=== PATIENT | male | born 1975 | race Two or more races ===

== ENCOUNTER 2020-12-18 19:09 | Inpatient (IN) | payer MEDICAID, OTHER ==
[~2020-12-18] VITALS: Ht 162.6 cm; Wt 110.2 kg
[2020-12-18] MEDS ORDERED: ONDANSETRON HCL 4 MG/2 ML VIAL IV ONE (19:15)
[2020-12-18] MEDS ORDERED: cefTRIAXone 1GM/50ML D5W 50 ML IV ONE (19:15)
[2020-12-18] MEDS ORDERED: SODIUM CHLORIDE 0.9% 1,000 ML IV ONE (19:15)
[2020-12-18] MEDS ORDERED: OCTREOTIDE ACETATE 100 MCG in SODIUM CHL 0.9% 50 ML IV ONE (19:15)
[2020-12-18] MEDS ORDERED: PANTOPRAZOLE 40 MG/10 ML VIAL INJ IV ONE (19:15)
[2020-12-18] MEDS ORDERED: ETOMIDATE (2MG/ML) 20ML VIAL IV ONE (19:25)
[2020-12-18] MEDS ORDERED: ROCURONIUM 10MG/ML 10ML VIAL IV ONE (19:26)
[2020-12-18 19:28] LABS: Basophils # (auto) 0 10 ^3/uL (0-0.2); Eosinophils # (auto) 0.1 10 ^3/uL (0-0.8); Lymphocytes # (auto) 1.2 10 ^3/uL (0.4-5.4); Monocytes # (auto) 0.6 10 ^3/uL (0-1.3); Neutrophils # (auto) 2.9 10 ^3/uL (1.6-8.6); Nucleated Red Blood Cells % 0.1 %; Red Cell Distribution Width 19.3 % (11.8-14.3)
[2020-12-18 19:30] LABS: Basophils % (auto) 0.8 % (0.0-2.0); Eosinophils % (auto) 1.4 % (0.0-7.0); Hematocrit 21.5 % (41.0-53.0); Hemoglobin 7.6 g/dL (13.5-17.5); Lymphocytes % (auto) 25.1 % (10.0-50.0); Mean Corpuscular Hemoglobin 32.5 pg (28.0-32.0); Mean Corpuscular Hgb Conc. 35.1 g/dL (32.0-36.0); Mean Corpuscular Volume 92.7 fL (80.0-100.0); Monocytes % (auto) 12.3 % (0.0-12.0); Neutrophils % (auto) 60.4 % (37.0-80.0); Red Blood Cells 2.32 10^6/uL (4.5-5.90); White Blood Cell 4.8 10^3/uL (4.4-10.8)
[2020-12-18] MEDS ORDERED: fentaNYL Drip 2500mCg/250mlNS 250 ML IV ONE (19:35)
[2020-12-18 19:43] LABS: Albumin 1.4 g/dL (3.4-5.0); BUN/Creatinine Ratio 23.8; Calcium 7.3 mg/dL (8.5-10.1); Magnesium 2.2 mg/dL (1.6-2.6); Potassium 5.1 mmol/L (3.5-5.1)
[2020-12-18] MEDS: fentaNYL Drip 2500mCg/250mlNS 250 ML IV SCH (19:45)
[2020-12-18 19:48] LABS: Bilirubin, Total 9.6 mg/dL (0.2-1.0); Total Protein 5.7 g/dL (6.4-8.2)
[2020-12-18 20:15] LABS: INR 2.78 (0.9-1.15); Partial Thromboplastin Time 59.5 sec (23.6-33.0)
[2020-12-18 20:25] VITALS: BP 145/77
[2020-12-18 20:40] VITALS: BP 117/51
[2020-12-18 20:50] VITALS: BP 105/43
[2020-12-18] MEDS: OCTREOTIDE ACETATE 500 MCG in SODIUM CHL 0.9% 99 ML IV SCH (21:01)
[2020-12-18 21:05] VITALS: BP 101/48
[2020-12-18] MEDS: MIDAZOLAM DRIP 50 mg/50mL 50 ML IV SCH (21:19)
[2020-12-18 21:30] VITALS: BP 110/34
[2020-12-18 23:00] VITALS: BP 108/37
[2020-12-19] VITALS (85 sets, daily range): BP systolic 82–131; BP diastolic 24–47
[2020-12-19] MEDS ORDERED: MORPHINE SULFATE INJECTION 2 MG/ML SYRG IV PRN (00:30)
[2020-12-19] MEDS ORDERED: ONDANSETRON HCL 4 MG/2 ML VIAL IV PRN (00:30)
[2020-12-19] MEDS ORDERED: NITROGLYCERIN 0.4 MG SL TAB SL PRN (00:30)
[2020-12-19] MEDS ORDERED: ACETAMINOPHEN 650 MG RECT SUPP PR PRN (00:30)
[2020-12-19] MEDS: SODIUM CHLORIDE 0.9% 1,000 ML IV SCH ×2 (03:24→17:10)
[2020-12-19] MEDS: ALBUMIN 25% 50 ML IV SCH ×3 (03:25→18:54)
[2020-12-19] MEDS ORDERED: NOREPINEPHRINE 8 MG/250ML KIT 250 ML IV ONE (03:37)
[2020-12-19] MEDS: NOREPINEPHRINE 8 MG/250ML KIT 250 ML IV SCH (04:09)
[2020-12-19 06:59] LABS: Hematocrit 30.2 % (41.0-53.0); Hemoglobin 10.5 g/dL (13.5-17.5); Mean Corpuscular Hemoglobin 31.6 pg (28.0-32.0); Mean Corpuscular Hgb Conc. 34.6 g/dL (32.0-36.0); Mean Corpuscular Volume 91.2 fL (80.0-100.0); Red Blood Cells 3.31 10^6/uL (4.5-5.90); Red Cell Distribution Width 19.5 % (11.8-14.3); White Blood Cell 13.5 10^3/uL (4.4-10.8)
[2020-12-19 07:03] LABS: INR 2.25 (0.9-1.15)
[2020-12-19 07:10] LABS: Albumin 1.9 g/dL (3.4-5.0)
[2020-12-19 07:14] LABS: BUN/Creatinine Ratio 23.2; Total Protein 6.1 g/dL (6.4-8.2)
[2020-12-19 07:24] LABS: Basophils % (manual) 0 (0.0-2.0); Blast Cells 0; Metamyelocytes % 0; Promyelocytes % 0; Reactive Lymphocytes 0
[2020-12-19] MEDS: VASOPRESSIN 50 UNITS in D5W 5% 247.5 ML IV SCH ×4 (07:45→20:15)
[2020-12-19 08:46] LABS: Band Neutrophils % (manual) 3; Eosinophils % (manual) 1 (0-7); Lymphocytes % (manual) 20 (10.0-50.0); Monocytes % (manual) 14 (0-12); Myelocytes % 2
[2020-12-19 08:47] LABS: Potassium 6.4 mmol/L (3.5-5.1)
[2020-12-19] MEDS: cefTRIAXone 1GM/50ML D5W 50 ML IV SCH (09:00)
[2020-12-19] MEDS ORDERED: CALCIUM GLUC 1,000mg/50ml-NS 50 ML IV ONE (09:45)
[2020-12-19] MEDS: PANTOPRAZOLE 40 MG/10 ML VIAL INJ IV SCH ×2 (10:00→22:12)
[2020-12-19] MEDS ORDERED: FAMOTIDINE (10MG/ML) 2ML VL IV SCH (10:00)
[2020-12-19] MEDS: OCTREOTIDE ACETATE 500 MCG in SODIUM CHL 0.9% 99 ML IV SCH ×2 (10:15→15:15)
[2020-12-19] MEDS ORDERED: DEXTROSE (50%) 50ML SYRG IV ONE (10:45)
[2020-12-19] MEDS ORDERED: ALBUTEROL SULF 2.5 MG/0.5ML(0.5%) NEB SOLN NEB ONE (10:45)
[2020-12-19] MEDS ORDERED: SODIUM BICARBONATE 8.4% INJ 50ML SYRINGE IV ONE (10:45)
[2020-12-19] MEDS ORDERED: InsuLIN REG 1unit/0.01ml Soln (100units/ml) IV ONE (10:45)
[2020-12-19 11:06] LABS: Albumin 1.8 g/dL (3.4-5.0); Calcium 7.6 mg/dL (8.5-10.1)
[2020-12-19] MEDS ORDERED: ALBUTEROL SULF 2.5 MG/0.5ML(0.5%) NEB SOLN ONE (11:07)
[2020-12-19 11:09] LABS: BUN/Creatinine Ratio 24.3; Bilirubin, Total 12.5 mg/dL (0.2-1.0)
[2020-12-19 11:24] LABS: Potassium 6.5 mmol/L (3.5-5.1)
[2020-12-19] MEDS ORDERED: SPIR50TA2 PO (15:37)
[2020-12-19] MEDS ORDERED: PANT40TA2 PO (15:37)
[2020-12-19] MEDS ORDERED: CIPR-173 PO (15:37)
[2020-12-19] MEDS ORDERED: FURO40TA4 PO (15:37)
[2020-12-19] MEDS ORDERED: FOLI1TAB6 PO (15:37)
[2020-12-19] MEDS ORDERED: MULT-1018 PO (15:37)
[2020-12-19] MEDS ORDERED: phytonadione 10 MG in SODIUM CHL 0.9% 50 ML IV ONE (16:30)
[2020-12-19] MEDS: MIDAZOLAM DRIP 50 mg/50mL 50 ML IV SCH (21:48)
[2020-12-20] VITALS (102 sets, daily range): BP systolic 99–151; BP diastolic 26–68
[2020-12-20 04:16] LABS: Urine Bacteria FEW /hpf (None Seen); Urine Blood 3+ /uL (Negative); Urine Hyaline Cast MANY /lpf (0 - 2); Urine Mucus FEW (None Seen); Urine Specific Gravity 1.018 (1.001-1.035); Urine WBC 29 /hpf (0 - 3); Urine WBC Clumps PRESENT /hpf (None Seen)
[2020-12-20] MEDS: OCTREOTIDE ACETATE 500 MCG in SODIUM CHL 0.9% 99 ML IV SCH ×3 (04:37→21:17)
[2020-12-20] MEDS: NOREPINEPHRINE 8 MG/250ML KIT 250 ML IV SCH ×2 (04:37→19:21)
[2020-12-20] MEDS: fentaNYL Drip 2500mCg/250mlNS 250 ML IV SCH (04:37)
[2020-12-20 05:33] LABS: Calcium 8.5 mg/dL (8.5-10.1); Magnesium 2.5 mg/dL (1.6-2.6); Potassium 4.9 mmol/L (3.5-5.1)
[2020-12-20 05:36] LABS: Bilirubin, Total 13.3 mg/dL (0.2-1.0); Total Protein 6.1 g/dL (6.4-8.2)
[2020-12-20 08:00] LABS: INR 2.01 (0.9-1.15); Partial Thromboplastin Time 46.6 sec (23.6-33.0)
[2020-12-20 08:03] LABS: Lactic Acid w/Reflex 2.1 mmol/L (0.4-2.0)
[2020-12-20 08:09] LABS: Basophils # (auto) 0.1 10 ^3/uL (0-0.2); Basophils % (auto) 1.1 % (0.0-2.0); Eosinophils # (auto) 0.2 10 ^3/uL (0-0.8); Eosinophils % (auto) 2.3 % (0.0-7.0); Hemoglobin 9.7 g/dL (13.5-17.5); Lymphocytes # (auto) 1.2 10 ^3/uL (0.4-5.4); Lymphocytes % (auto) 12.4 % (10.0-50.0); Mean Corpuscular Hgb Conc. 32.3 g/dL (32.0-36.0); Neutrophils # (auto) 7.3 10 ^3/uL (1.6-8.6); Neutrophils % (auto) 74.2 % (37.0-80.0); Red Blood Cells 3.12 10^6/uL (4.5-5.90); Red Cell Distribution Width 19.6 % (11.8-14.3); White Blood Cell 9.9 10^3/uL (4.4-10.8)
[2020-12-20] MEDS: cefTRIAXone 1GM/50ML D5W 50 ML IV SCH (09:00)
[2020-12-20] MEDS: PANTOPRAZOLE 40 MG/10 ML VIAL INJ IV SCH ×2 (09:46→21:17)
[2020-12-20] MEDS: SODIUM CHLORIDE 0.9% 1,000 ML IV SCH (09:50)
[2020-12-20] MEDS: FOLIC ACID 1 MG, MULTIPLE VITAMIN 10 ML, MAGNESIUM SULF SDV 50% 8 MEQ, THIAMINE INJ 100... INJ SCH ×5 (12:00)
[2020-12-20] MEDS: MIDAZOLAM DRIP 50 mg/50mL 50 ML IV SCH (21:17)
[2020-12-21] VITALS (107 sets, daily range): BP systolic 92–143; BP diastolic 28–47
[2020-12-21] MEDS: fentaNYL Drip 2500mCg/250mlNS 250 ML IV SCH ×2 (03:40→17:50)
[2020-12-21] MEDS: SODIUM CHLORIDE 0.9% 1,000 ML IV SCH ×2 (03:41→19:10)
[2020-12-21 05:49] LABS: Calcium 8.4 mg/dL (8.5-10.1); Potassium 4.5 mmol/L (3.5-5.1)
[2020-12-21 05:50] LABS: Basophils # (auto) 0 10 ^3/uL (0-0.2); Basophils % (auto) 0.6 % (0.0-2.0); Eosinophils # (auto) 0.2 10 ^3/uL (0-0.8); Eosinophils % (auto) 3.6 % (0.0-7.0); Hematocrit 26.3 % (41.0-53.0); Hemoglobin 9.1 g/dL (13.5-17.5); Lymphocytes # (auto) 1.3 10 ^3/uL (0.4-5.4); Lymphocytes % (auto) 23.9 % (10.0-50.0); Mean Corpuscular Hgb Conc. 34.7 g/dL (32.0-36.0); Monocytes # (auto) 0.7 10 ^3/uL (0-1.3); Monocytes % (auto) 13.4 % (0.0-12.0); Neutrophils # (auto) 3.2 10 ^3/uL (1.6-8.6); Neutrophils % (auto) 58.5 % (37.0-80.0); Nucleated Red Blood Cells % 0.2 %; Red Blood Cells 2.86 10^6/uL (4.5-5.90); Red Cell Distribution Width 18.9 % (11.8-14.3); White Blood Cell 5.5 10^3/uL (4.4-10.8)
[2020-12-21 05:52] LABS: BUN/Creatinine Ratio 29.6; Bilirubin, Total 13.7 mg/dL (0.2-1.0); Total Protein 5.8 g/dL (6.4-8.2)
[2020-12-21 05:53] LABS: INR 1.71 (0.9-1.15)
[2020-12-21] MEDS: OCTREOTIDE ACETATE 500 MCG in SODIUM CHL 0.9% 99 ML IV SCH ×2 (07:02→16:21)
[2020-12-21] MEDS ORDERED: phytonadione 10 MG in SODIUM CHL 0.9% 50 ML IV ONE (08:30)
[2020-12-21] MEDS: cefTRIAXone 1GM/50ML D5W 50 ML IV SCH (09:01)
[2020-12-21] MEDS: PANTOPRAZOLE 40 MG/10 ML VIAL INJ IV SCH ×2 (09:01→22:17)
[2020-12-21] MEDS: NOREPINEPHRINE 8 MG/250ML KIT 250 ML IV SCH (09:02)
[2020-12-21] MEDS: MIDAZOLAM DRIP 50 mg/50mL 50 ML IV SCH ×2 (09:02→16:22)
[2020-12-21] MEDS: FOLIC ACID 1 MG, MULTIPLE VITAMIN 10 ML, MAGNESIUM SULF SDV 50% 8 MEQ, THIAMINE INJ 100... INJ SCH ×5 (13:24)
[2020-12-22] VITALS (105 sets, daily range): BP systolic 101–152; BP diastolic 25–54
[2020-12-22] MEDS: OCTREOTIDE ACETATE 500 MCG in SODIUM CHL 0.9% 99 ML IV SCH ×3 (03:01→23:15)
[2020-12-22 05:18] LABS: Basophils # (auto) 0 10 ^3/uL (0-0.2); Eosinophils # (auto) 0.1 10 ^3/uL (0-0.8); Monocytes # (auto) 0.7 10 ^3/uL (0-1.3); Monocytes % (auto) 14.7 % (0.0-12.0); Neutrophils % (auto) 61.9 % (37.0-80.0)
[2020-12-22 05:24] LABS: Basophils % (auto) 0.6 % (0.0-2.0); Eosinophils % (auto) 3.1 % (0.0-7.0); Hematocrit 24.5 % (41.0-53.0); Hemoglobin 8.6 g/dL (13.5-17.5); Lymphocytes # (auto) 0.9 10 ^3/uL (0.4-5.4); Lymphocytes % (auto) 19.7 % (10.0-50.0); Mean Corpuscular Hemoglobin 32.7 pg (28.0-32.0); Mean Corpuscular Hgb Conc. 35.3 g/dL (32.0-36.0); Mean Corpuscular Volume 92.7 fL (80.0-100.0); Neutrophils # (auto) 2.8 10 ^3/uL (1.6-8.6); Red Blood Cells 2.64 10^6/uL (4.5-5.90); White Blood Cell 4.6 10^3/uL (4.4-10.8)
[2020-12-22 05:31] LABS: INR 1.67 (0.9-1.15)
[2020-12-22 05:47] LABS: Potassium 4.4 mmol/L (3.5-5.1)
[2020-12-22 05:57] LABS: Albumin 1.9 g/dL (3.4-5.0); BUN/Creatinine Ratio 33.7; Bilirubin, Total 14.4 mg/dL (0.2-1.0); Calcium 8.7 mg/dL (8.5-10.1); Magnesium 2.6 mg/dL (1.6-2.6); Total Protein 5.4 g/dL (6.4-8.2)
[2020-12-22] MEDS: cefTRIAXone 1GM/50ML D5W 50 ML IV SCH (08:39)
[2020-12-22] MEDS: PANTOPRAZOLE 40 MG/10 ML VIAL INJ IV SCH ×2 (09:50→21:13)
[2020-12-22] MEDS: NOREPINEPHRINE 8 MG/250ML KIT 250 ML IV SCH (09:51)
[2020-12-22] MEDS: SODIUM CHLORIDE 0.9% 1,000 ML IV SCH (11:50)
[2020-12-22] MEDS: FOLIC ACID 1 MG, MULTIPLE VITAMIN 10 ML, MAGNESIUM SULF SDV 50% 8 MEQ, THIAMINE INJ 100... INJ SCH ×5 (12:37)
[2020-12-22] MEDS: fentaNYL Drip 2500mCg/250mlNS 250 ML IV SCH (19:18)
[2020-12-22] MEDS: MIDAZOLAM DRIP 50 mg/50mL 50 ML IV SCH (21:00)
[2020-12-23] VITALS (99 sets, daily range): BP systolic 106–174; BP diastolic 37–71
[2020-12-23] MEDS: SODIUM CHLORIDE 0.9% 1,000 ML IV SCH ×2 (04:30→23:12)
[2020-12-23 04:51] LABS: Basophils # (auto) 0 10 ^3/uL (0-0.2); Basophils % (auto) 0.8 % (0.0-2.0); Hemoglobin 8.4 g/dL (13.5-17.5); Lymphocytes # (auto) 0.8 10 ^3/uL (0.4-5.4); Monocytes # (auto) 0.6 10 ^3/uL (0-1.3); Nucleated Red Blood Cells % 0.1 %
[2020-12-23 04:53] LABS: Eosinophils # (auto) 0.1 10 ^3/uL (0-0.8); Eosinophils % (auto) 3.8 % (0.0-7.0); Lymphocytes % (auto) 22.2 % (10.0-50.0); Mean Corpuscular Hemoglobin 32.4 pg (28.0-32.0); Mean Corpuscular Hgb Conc. 34.9 g/dL (32.0-36.0); Mean Corpuscular Volume 92.7 fL (80.0-100.0); Monocytes % (auto) 17.6 % (0.0-12.0); Neutrophils % (auto) 55.6 % (37.0-80.0); Red Blood Cells 2.59 10^6/uL (4.5-5.90); Red Cell Distribution Width 18.8 % (11.8-14.3); White Blood Cell 3.6 10^3/uL (4.4-10.8)
[2020-12-23 05:08] LABS: INR 1.8 (0.9-1.15)
[2020-12-23 05:45] LABS: Potassium 4.5 mmol/L (3.5-5.1)
[2020-12-23 05:54] LABS: Albumin 1.9 g/dL (3.4-5.0); BUN/Creatinine Ratio 29.9; Bilirubin, Total 14.5 mg/dL (0.2-1.0); Calcium 8.3 mg/dL (8.5-10.1); Magnesium 2.7 mg/dL (1.6-2.6); Total Protein 5.5 g/dL (6.4-8.2)
[2020-12-23] MEDS: MIDAZOLAM DRIP 50 mg/50mL 50 ML IV SCH (08:20)
[2020-12-23] MEDS ORDERED: MIDAZOLAM HCL 5 MG/ML-1ML VIAL ONE (08:37)
[2020-12-23] MEDS ORDERED: diphenhdrAMINE HCL 50 MG/1 ML VL ONE (08:37)
[2020-12-23] MEDS ORDERED: fentaNYL CITRATE 100 MCG/2 ML VL ONE (08:38)
[2020-12-23] MEDS: cefTRIAXone 1GM/50ML D5W 50 ML IV SCH (08:55)
[2020-12-23] MEDS: PANTOPRAZOLE 40 MG/10 ML VIAL INJ IV SCH ×2 (10:12→23:12)
[2020-12-23] MEDS: FOLIC ACID 1 MG, MULTIPLE VITAMIN 10 ML, MAGNESIUM SULF SDV 50% 8 MEQ, THIAMINE INJ 100... INJ SCH ×5 (12:30)
[2020-12-23] MEDS: NOREPINEPHRINE 8 MG/250ML KIT 250 ML IV SCH (13:11)
[2020-12-23] MEDS: OCTREOTIDE ACETATE 500 MCG in SODIUM CHL 0.9% 99 ML IV SCH ×2 (14:07→19:15)
[2020-12-23] MEDS: fentaNYL Drip 2500mCg/250mlNS 250 ML IV SCH (19:45)
[2020-12-24] VITALS (103 sets, daily range): BP systolic 106–127; BP diastolic 34–50
[2020-12-24] MEDS: MIDAZOLAM DRIP 50 mg/50mL 50 ML IV SCH (01:20)
[2020-12-24] MEDS: OCTREOTIDE ACETATE 500 MCG in SODIUM CHL 0.9% 99 ML IV SCH ×3 (01:58→23:30)
[2020-12-24 05:17] LABS: Basophils # (auto) 0 10 ^3/uL (0-0.2); Monocytes # (auto) 0.5 10 ^3/uL (0-1.3); Nucleated Red Blood Cells % 0.2 %
[2020-12-24 05:19] LABS: Basophils % (auto) 0.8 % (0.0-2.0); Eosinophils # (auto) 0.1 10 ^3/uL (0-0.8); Eosinophils % (auto) 4.3 % (0.0-7.0); Hematocrit 23.4 % (41.0-53.0); Lymphocytes # (auto) 0.8 10 ^3/uL (0.4-5.4); Lymphocytes % (auto) 26.6 % (10.0-50.0); Mean Corpuscular Hemoglobin 32.7 pg (28.0-32.0); Mean Corpuscular Hgb Conc. 34.3 g/dL (32.0-36.0); Mean Corpuscular Volume 95.4 fL (80.0-100.0); Monocytes % (auto) 15.5 % (0.0-12.0); Neutrophils # (auto) 1.7 10 ^3/uL (1.6-8.6); Neutrophils % (auto) 52.8 % (37.0-80.0); Red Blood Cells 2.45 10^6/uL (4.5-5.90); Red Cell Distribution Width 19.6 % (11.8-14.3); White Blood Cell 3.2 10^3/uL (4.4-10.8)
[2020-12-24 05:34] LABS: Albumin 1.8 g/dL (3.4-5.0); Calcium 8.1 mg/dL (8.5-10.1); Potassium 4.3 mmol/L (3.5-5.1)
[2020-12-24 05:40] LABS: BUN/Creatinine Ratio 27.6; Bilirubin, Total 13.2 mg/dL (0.2-1.0); Total Protein 5.3 g/dL (6.4-8.2)
[2020-12-24] MEDS: NOREPINEPHRINE 8 MG/250ML KIT 250 ML IV SCH ×2 (06:08→18:13)
[2020-12-24] MEDS: cefTRIAXone 1GM/50ML D5W 50 ML IV SCH (09:06)
[2020-12-24] MEDS: PANTOPRAZOLE 40 MG/10 ML VIAL INJ IV SCH ×2 (09:31→22:02)
[2020-12-24] MEDS: SODIUM CHLORIDE 0.9% 1,000 ML IV SCH ×2 (13:50→18:15)
[2020-12-24] MEDS: FOLIC ACID 1 MG, MULTIPLE VITAMIN 10 ML, MAGNESIUM SULF SDV 50% 8 MEQ, THIAMINE INJ 100... INJ SCH ×5 (14:53)
[2020-12-24] MEDS: fentaNYL Drip 2500mCg/250mlNS 250 ML IV SCH (19:45)
[2020-12-25] VITALS (103 sets, daily range): BP systolic 104–143; BP diastolic 39–55
[2020-12-25 05:32] LABS: Basophils # (auto) 0.1 10 ^3/uL (0-0.2); Eosinophils # (auto) 0.2 10 ^3/uL (0-0.8); Eosinophils % (auto) 3.3 % (0.0-7.0); Hemoglobin 8.8 g/dL (13.5-17.5); Lymphocytes # (auto) 0.9 10 ^3/uL (0.4-5.4); Lymphocytes % (auto) 18.6 % (10.0-50.0); Mean Corpuscular Hemoglobin 32.8 pg (28.0-32.0); Mean Corpuscular Hgb Conc. 33.7 g/dL (32.0-36.0); Mean Corpuscular Volume 97.3 fL (80.0-100.0); Monocytes # (auto) 0.7 10 ^3/uL (0-1.3); Monocytes % (auto) 14.2 % (0.0-12.0); Neutrophils % (auto) 62.9 % (37.0-80.0); Nucleated Red Blood Cells % 0.1 %; Red Blood Cells 2.67 10^6/uL (4.5-5.90); Red Cell Distribution Width 20.5 % (11.8-14.3); White Blood Cell 4.8 10^3/uL (4.4-10.8)
[2020-12-25 05:44] LABS: INR 2.19 (0.9-1.15)
[2020-12-25 06:17] LABS: Albumin 1.8 g/dL (3.4-5.0); BUN/Creatinine Ratio 26.6; Bilirubin, Total 13.9 mg/dL (0.2-1.0); Calcium 8.3 mg/dL (8.5-10.1); Magnesium 2.7 mg/dL (1.6-2.6); Total Protein 5.8 g/dL (6.4-8.2)
[2020-12-25] MEDS: NOREPINEPHRINE 8 MG/250ML KIT 250 ML IV SCH ×2 (07:53→21:28)
[2020-12-25] MEDS: cefTRIAXone 1GM/50ML D5W 50 ML IV SCH (09:02)
[2020-12-25] MEDS: PANTOPRAZOLE 40 MG/10 ML VIAL INJ IV SCH ×2 (10:07→21:28)
[2020-12-25] MEDS: OCTREOTIDE ACETATE 500 MCG in SODIUM CHL 0.9% 99 ML IV SCH (10:10)
[2020-12-25] MEDS: FOLIC ACID 1 MG, MULTIPLE VITAMIN 10 ML, MAGNESIUM SULF SDV 50% 8 MEQ, THIAMINE INJ 100... INJ SCH ×5 (12:36)
[2020-12-25] MEDS ORDERED: TPN PER PHARMACY 0 ML IV SCH (16:00)
[2020-12-25] MEDS: SODIUM CHLORIDE 0.9% 1,000 ML IV SCH (23:45)
[2020-12-26] VITALS (103 sets, daily range): BP systolic 108–133; BP diastolic 39–61
[2020-12-26 06:54] LABS: Hematocrit 24.7 % (41.0-53.0); Hemoglobin 8.7 g/dL (13.5-17.5)
[2020-12-26 07:00] LABS: INR 2.25 (0.9-1.15)
[2020-12-26 07:17] LABS: Potassium 4.7 mmol/L (3.5-5.1)
[2020-12-26] MEDS: cefTRIAXone 1GM/50ML D5W 50 ML IV SCH (09:24)
[2020-12-26] MEDS: PANTOPRAZOLE 40 MG/10 ML VIAL INJ IV SCH ×2 (09:24→21:38)
[2020-12-26 10:10] LABS: Albumin 1.6 g/dL (3.4-5.0); BUN/Creatinine Ratio 28.7; Calcium 8.1 mg/dL (8.5-10.1)
[2020-12-26 10:24] LABS: Bilirubin, Total 12.9 mg/dL (0.2-1.0); Total Protein 5.5 g/dL (6.4-8.2)
[2020-12-26] MEDS ORDERED: AZITHROMYCIN 500MG/ 250ML 250 ML IV ONE (11:30)
[2020-12-26] MEDS ORDERED: TPN PER PHARMACY 0 ML IV SCH (11:30)
[2020-12-26] MEDS: FOLIC ACID 1 MG, MULTIPLE VITAMIN 10 ML, MAGNESIUM SULF SDV 50% 8 MEQ, THIAMINE INJ 100... INJ SCH ×5 (11:37)
[2020-12-26] MEDS: SODIUM CHLORIDE 0.9% 1,000 ML IV SCH (14:48)
[2020-12-26] MEDS ORDERED: TPN PER PHARMACY IV NR ×7 (20:00)
[2020-12-27] VITALS (84 sets, daily range): BP systolic 105–142; BP diastolic 40–61
[2020-12-27] MEDS ORDERED: DEXTROSE (50%) 50ML SYRG IV SCH
[2020-12-27] MEDS: ACCU-CHEK COMFORT CURVE STRIP VI SCH ×4 (00:38→18:14)
[2020-12-27] MEDS: SODIUM CHLORIDE 0.9% 1,000 ML IV SCH (04:55)
[2020-12-27] MEDS: NOREPINEPHRINE 8 MG/250ML KIT 250 ML IV SCH (05:24)
[2020-12-27 06:10] LABS: Basophils # (auto) 0 10 ^3/uL (0-0.2); Basophils % (auto) 0.6 % (0.0-2.0); Eosinophils # (auto) 0.1 10 ^3/uL (0-0.8); Lymphocytes # (auto) 0.7 10 ^3/uL (0.4-5.4); Monocytes # (auto) 0.4 10 ^3/uL (0-1.3); Neutrophils # (auto) 3.3 10 ^3/uL (1.6-8.6); Red Blood Cells 2.48 10^6/uL (4.5-5.90)
[2020-12-27 06:12] LABS: Eosinophils % (auto) 2.7 % (0.0-7.0); Hematocrit 23.5 % (41.0-53.0); Hemoglobin 8.1 g/dL (13.5-17.5); Lymphocytes % (auto) 14.3 % (10.0-50.0); Mean Corpuscular Hemoglobin 32.8 pg (28.0-32.0); Mean Corpuscular Hgb Conc. 34.6 g/dL (32.0-36.0); Mean Corpuscular Volume 94.9 fL (80.0-100.0); Monocytes % (auto) 9.6 % (0.0-12.0); Neutrophils % (auto) 72.8 % (37.0-80.0); White Blood Cell 4.6 10^3/uL (4.4-10.8)
[2020-12-27 06:13] LABS: Red Cell Distribution Width 20.7 % (11.8-14.3)
[2020-12-27 06:24] LABS: INR 2.47 (0.9-1.15)
[2020-12-27 06:29] LABS: Albumin 1.4 g/dL (3.4-5.0); BUN/Creatinine Ratio 27.4; Calcium 7.7 mg/dL (8.5-10.1); Magnesium 2.4 mg/dL (1.6-2.6); Potassium 4.5 mmol/L (3.5-5.1)
[2020-12-27 06:32] LABS: Total Protein 5.4 g/dL (6.4-8.2)
[2020-12-27] MEDS: InsuLIN REG 1unit/0.01ml Soln (100units/ml) SC SCH ×4 (08:03→18:00)
[2020-12-27] MEDS: PANTOPRAZOLE 40 MG/10 ML VIAL INJ IV SCH ×2 (09:20→22:21)
[2020-12-27] MEDS: cefTRIAXone 1GM/50ML D5W 50 ML IV SCH (09:20)
[2020-12-27] MEDS: AZITHROMYCIN 500MG/ 250ML 250 ML IV SCH (10:16)
[2020-12-27] MEDS: FOLIC ACID 1 MG, MULTIPLE VITAMIN 10 ML, MAGNESIUM SULF SDV 50% 8 MEQ, THIAMINE INJ 100... INJ SCH ×5 (13:22)
[2020-12-27 14:40] LABS: Pre Albumin 3.6 mg/dL (20.0-40.0)
[2020-12-27 14:43] LABS: Magnesium 2.8 mg/dL (1.6-2.6); Phosphorus 4.1 mg/dL (2.5-4.90)
[2020-12-27] MEDS ORDERED: TPN PER PHARMACY IV NR ×9 (20:00)
[2020-12-28] VITALS (94 sets, daily range): BP systolic 109–145; BP diastolic 36–66
[2020-12-28] MEDS: SODIUM CHLORIDE 0.9% 1,000 ML IV SCH ×2 (01:35→07:55)
[2020-12-28] MEDS: InsuLIN REG 1unit/0.01ml Soln (100units/ml) SC SCH ×4 (06:00→17:53)
[2020-12-28] MEDS: ACCU-CHEK COMFORT CURVE STRIP VI SCH ×4 (06:00→17:53)
[2020-12-28] MEDS: NOREPINEPHRINE 8 MG/250ML KIT 250 ML IV SCH ×2 (07:30→18:54)
[2020-12-28 08:06] LABS: Basophils # (auto) 0 10 ^3/uL (0-0.2); Eosinophils # (auto) 0.1 10 ^3/uL (0-0.8); Hemoglobin 7.6 g/dL (13.5-17.5); Lymphocytes # (auto) 0.7 10 ^3/uL (0.4-5.4); Mean Corpuscular Hemoglobin 32.9 pg (28.0-32.0); Monocytes # (auto) 0.4 10 ^3/uL (0-1.3); Red Blood Cells 2.32 10^6/uL (4.5-5.90)
[2020-12-28 08:08] LABS: Basophils % (auto) 0.6 % (0.0-2.0); Eosinophils % (auto) 2.4 % (0.0-7.0); Hematocrit 22.1 % (41.0-53.0); Lymphocytes % (auto) 17.4 % (10.0-50.0); Mean Corpuscular Hgb Conc. 34.5 g/dL (32.0-36.0); Mean Corpuscular Volume 95.4 fL (80.0-100.0); Monocytes % (auto) 9.4 % (0.0-12.0); Neutrophils % (auto) 70.2 % (37.0-80.0); Nucleated Red Blood Cells % 0.3 %; White Blood Cell 4.3 10^3/uL (4.4-10.8)
[2020-12-28 08:13] LABS: INR 2.62 (0.9-1.15); Partial Thromboplastin Time 66.2 sec (23.6-33.0)
[2020-12-28 08:16] LABS: Red Cell Distribution Width 21.5 % (11.8-14.3)
[2020-12-28 08:18] LABS: Albumin 1.5 g/dL (3.4-5.0); Anion Gap 3 (5-15); Blood Urea Nitrogen 29 mg/dL (7-18); Calcium 7.4 mg/dL (8.5-10.1); Carbon Dioxide 23 mmol/L (21-32); Chloride 108 mmol/L (98-107); Glucose 128 mg/dL (74-106); Magnesium 2.6 mg/dL (1.6-2.6); Potassium 4.4 mmol/L (3.5-5.1); Sodium 134 mmol/L (136-145)
[2020-12-28 08:23] LABS: Alanine Aminotransferase 29 U/L (16-61); Alkaline Phosphatase 92 U/L (45-117); Aspartate Aminotransferase 62 U/L (15-37); BUN/Creatinine Ratio 33.7; Bilirubin, Total 9.4 mg/dL (0.2-1.0); GFR African American 123 mL/min; GFR Non-African American 101 mL/min; Total Protein 5.3 g/dL (6.4-8.2)
[2020-12-28] MEDS: cefTRIAXone 1GM/50ML D5W 50 ML IV SCH (10:28)
[2020-12-28] MEDS: PANTOPRAZOLE 40 MG/10 ML VIAL INJ IV SCH ×2 (10:29→21:41)
[2020-12-28] MEDS: AZITHROMYCIN 500MG/ 250ML 250 ML IV SCH (10:29)
[2020-12-28] MEDS ORDERED: LACTULOSE 10g/15ml SOLN PR ONE (11:30)
[2020-12-28] MEDS: FOLIC ACID 1 MG, MULTIPLE VITAMIN 10 ML, MAGNESIUM SULF SDV 50% 8 MEQ, THIAMINE INJ 100... INJ SCH ×5 (12:46)
[2020-12-28] MEDS: TPN PER PHARMACY IV NR ×8 (21:41)
[2020-12-29] VITALS (85 sets, daily range): BP systolic 109–166; BP diastolic 48–75
[2020-12-29] MEDS: InsuLIN REG 1unit/0.01ml Soln (100units/ml) SC SCH ×5 (06:00→23:23)
[2020-12-29 06:04] LABS: Potassium 4.1 mmol/L (3.5-5.1)
[2020-12-29 06:12] LABS: Albumin 1.5 g/dL (3.4-5.0); BUN/Creatinine Ratio 40.8; Bilirubin, Total 9.7 mg/dL (0.2-1.0); Calcium 7.5 mg/dL (8.5-10.1); Magnesium 2.6 mg/dL (1.6-2.6); Phosphorus 3.2 mg/dL (2.5-4.90); Total Protein 5.4 g/dL (6.4-8.2)
[2020-12-29 07:51] LABS: Basophils # (auto) 0 10 ^3/uL (0-0.2); Eosinophils # (auto) 0.2 10 ^3/uL (0-0.8); Eosinophils % (auto) 3.7 % (0.0-7.0); Monocytes # (auto) 0.6 10 ^3/uL (0-1.3); Nucleated Red Blood Cells % 0.1 %; Red Blood Cells 2.53 10^6/uL (4.5-5.90)
[2020-12-29 07:53] LABS: Basophils % (auto) 0.8 % (0.0-2.0); Hematocrit 24.2 % (41.0-53.0); Hemoglobin 8.4 g/dL (13.5-17.5); Lymphocytes # (auto) 1.2 10 ^3/uL (0.4-5.4); Lymphocytes % (auto) 18.5 % (10.0-50.0); Mean Corpuscular Hemoglobin 33.1 pg (28.0-32.0); Mean Corpuscular Hgb Conc. 34.6 g/dL (32.0-36.0); Mean Corpuscular Volume 95.8 fL (80.0-100.0); Monocytes % (auto) 8.8 % (0.0-12.0); Neutrophils # (auto) 4.4 10 ^3/uL (1.6-8.6); Neutrophils % (auto) 68.2 % (37.0-80.0); White Blood Cell 6.4 10^3/uL (4.4-10.8)
[2020-12-29] MEDS: ACCU-CHEK COMFORT CURVE STRIP VI SCH ×5 (08:32→23:24)
[2020-12-29] MEDS: cefTRIAXone 1GM/50ML D5W 50 ML IV SCH (09:31)
[2020-12-29] MEDS: AZITHROMYCIN 500MG/ 250ML 250 ML IV SCH (09:31)
[2020-12-29] MEDS: PANTOPRAZOLE 40 MG/10 ML VIAL INJ IV SCH ×2 (09:31→21:05)
[2020-12-29] MEDS: SODIUM CHLORIDE 0.9% 1,000 ML IV SCH (09:32)
[2020-12-29] MEDS: FOLIC ACID 1 MG, MULTIPLE VITAMIN 10 ML, MAGNESIUM SULF SDV 50% 8 MEQ, THIAMINE INJ 100... INJ SCH ×5 (12:00)
[2020-12-29] MEDS ORDERED: FUROSEMIDE 20 MG/2 ML VIAL IV ONE (13:30)
[2020-12-29] MEDS ORDERED: phytonadione 10 MG in SODIUM CHL 0.9% 50 ML IV ONE (15:45)
[2020-12-29] MEDS ORDERED: TPN PER PHARMACY IV NR ×8 (20:00)
[2020-12-29] MEDS: TPN PER PHARMACY IV NR ×8 (20:08)
[2020-12-29] MEDS: fentaNYL Drip 2500mCg/250mlNS 250 ML IV SCH (21:11)
[2020-12-30] VITALS (91 sets, daily range): BP systolic 97–162; BP diastolic 40–84
[2020-12-30] MEDS: NOREPINEPHRINE 8 MG/250ML KIT 250 ML IV SCH (04:15)
[2020-12-30 04:58] LABS: Basophils # (auto) 0.1 10 ^3/uL (0-0.2); Basophils % (auto) 0.7 % (0.0-2.0); Eosinophils # (auto) 0.3 10 ^3/uL (0-0.8); Eosinophils % (auto) 3.6 % (0.0-7.0); Hematocrit 23.7 % (41.0-53.0); Hemoglobin 7.9 g/dL (13.5-17.5); Lymphocytes # (auto) 1.3 10 ^3/uL (0.4-5.4); Lymphocytes % (auto) 16.9 % (10.0-50.0); Mean Corpuscular Hemoglobin 32.8 pg (28.0-32.0); Mean Corpuscular Hgb Conc. 33.5 g/dL (32.0-36.0); Monocytes # (auto) 0.8 10 ^3/uL (0-1.3); Monocytes % (auto) 10.4 % (0.0-12.0); Neutrophils # (auto) 5.1 10 ^3/uL (1.6-8.6); Neutrophils % (auto) 68.4 % (37.0-80.0); Nucleated Red Blood Cells % 0.1 %; Red Blood Cells 2.42 10^6/uL (4.5-5.90); White Blood Cell 7.4 10^3/uL (4.4-10.8)
[2020-12-30 05:00] LABS: Red Cell Distribution Width 24.1 % (11.8-14.3)
[2020-12-30] MEDS: InsuLIN REG 1unit/0.01ml Soln (100units/ml) SC SCH ×4 (05:10→23:54)
[2020-12-30] MEDS: ACCU-CHEK COMFORT CURVE STRIP VI SCH ×4 (05:11→23:55)
[2020-12-30 05:19] LABS: Calcium 7.5 mg/dL (8.5-10.1); Potassium 4.2 mmol/L (3.5-5.1)
[2020-12-30 05:23] LABS: Albumin 1.5 g/dL (3.4-5.0); BUN/Creatinine Ratio 40.2; Bilirubin, Total 9.7 mg/dL (0.2-1.0); Magnesium 2.6 mg/dL (1.6-2.6); Phosphorus 3.9 mg/dL (2.5-4.90); Total Protein 5.5 g/dL (6.4-8.2)
[2020-12-30 08:56] LABS: INR 2.55 (0.9-1.15)
[2020-12-30] MEDS: cefTRIAXone 1GM/50ML D5W 50 ML IV SCH (10:23)
[2020-12-30] MEDS: PANTOPRAZOLE 40 MG/10 ML VIAL INJ IV SCH ×2 (10:23→21:32)
[2020-12-30] MEDS: AZITHROMYCIN 500MG/ 250ML 250 ML IV SCH (10:23)
[2020-12-30] MEDS: FOLIC ACID 1 MG, MULTIPLE VITAMIN 10 ML, MAGNESIUM SULF SDV 50% 8 MEQ, THIAMINE INJ 100... INJ SCH ×5 (12:23)
[2020-12-30] MEDS ORDERED: FUROSEMIDE 20 MG/2 ML VIAL IV ONE (13:15)
[2020-12-30] MEDS ORDERED: phytonadione 10 MG in SODIUM CHL 0.9% 50 ML IV ONE (13:15)
[2020-12-30] MEDS ORDERED: TPN PER PHARMACY IV NR ×7 (20:00)
[2020-12-30] MEDS: fentaNYL Drip 2500mCg/250mlNS 250 ML IV SCH (21:00)
[2020-12-31] VITALS (98 sets, daily range): BP systolic 107–175; BP diastolic 45–74
[2020-12-31 02:54] LABS: Basophils # (auto) 0.1 10 ^3/uL (0-0.2); Eosinophils # (auto) 0.3 10 ^3/uL (0-0.8); Eosinophils % (auto) 4.4 % (0.0-7.0); Hematocrit 22.5 % (41.0-53.0); Mean Corpuscular Volume 97.1 fL (80.0-100.0); Monocytes # (auto) 0.6 10 ^3/uL (0-1.3); Monocytes % (auto) 8.7 % (0.0-12.0); Red Blood Cells 2.32 10^6/uL (4.5-5.90)
[2020-12-31 02:56] LABS: Basophils % (auto) 0.8 % (0.0-2.0); Hemoglobin 7.9 g/dL (13.5-17.5); Lymphocytes % (auto) 15.2 % (10.0-50.0); Neutrophils # (auto) 4.7 10 ^3/uL (1.6-8.6); Neutrophils % (auto) 70.9 % (37.0-80.0); Nucleated Red Blood Cells % 0.1 %; White Blood Cell 6.6 10^3/uL (4.4-10.8)
[2020-12-31 02:57] LABS: Red Cell Distribution Width 23.3 % (11.8-14.3)
[2020-12-31 03:19] LABS: INR 2.57 (0.9-1.15)
[2020-12-31 03:32] LABS: Albumin 1.4 g/dL (3.4-5.0); BUN/Creatinine Ratio 46.4; Calcium 7.8 mg/dL (8.5-10.1); Magnesium 2.3 mg/dL (1.6-2.6); Potassium 4.3 mmol/L (3.5-5.1)
[2020-12-31 03:42] LABS: Bilirubin, Total 9.8 mg/dL (0.2-1.0); Phosphorus 4.2 mg/dL (2.5-4.90); Total Protein 5.5 g/dL (6.4-8.2)
[2020-12-31] MEDS: NOREPINEPHRINE 8 MG/250ML KIT 250 ML IV SCH (04:03)
[2020-12-31] MEDS: ACCU-CHEK COMFORT CURVE STRIP VI SCH ×3 (05:30→18:08)
[2020-12-31] MEDS: InsuLIN REG 1unit/0.01ml Soln (100units/ml) SC SCH ×3 (05:30→18:24)
[2020-12-31] MEDS: PANTOPRAZOLE 40 MG/10 ML VIAL INJ IV SCH ×2 (09:45→22:00)
[2020-12-31] MEDS: cefTRIAXone 1GM/50ML D5W 50 ML IV SCH (09:45)
[2020-12-31] MEDS: AZITHROMYCIN 500MG/ 250ML 250 ML IV SCH (09:45)
[2020-12-31] MEDS: LACTULOSE 10g/15ml SOLN PR SCH ×2 (10:15→22:00)
[2020-12-31] MEDS: FOLIC ACID 1 MG, MULTIPLE VITAMIN 10 ML, MAGNESIUM SULF SDV 50% 8 MEQ, THIAMINE INJ 100... INJ SCH ×5 (12:00)
[2020-12-31] MEDS ORDERED: phytonadione 10 MG in SODIUM CHL 0.9% 50 ML IV ONE (13:15)
[2020-12-31] MEDS ORDERED: FUROSEMIDE 20 MG/2 ML VIAL IV ONE (13:15)
[2020-12-31] MEDS: TPN PER PHARMACY IV NR ×8 (20:00)
[2021-01-01] VITALS (101 sets, daily range): BP systolic 106–192; BP diastolic 49–99
[2021-01-01 05:09] LABS: Hematocrit 20.9 % (41.0-53.0); Hemoglobin 7.4 g/dL (13.5-17.5)
[2021-01-01 05:24] LABS: Albumin 1.5 g/dL (3.4-5.0); Calcium 7.6 mg/dL (8.5-10.1); INR 2.47 (0.9-1.15); Magnesium 2.3 mg/dL (1.6-2.6); Potassium 3.9 mmol/L (3.5-5.1)
[2021-01-01 05:28] LABS: BUN/Creatinine Ratio 51.3; Bilirubin, Total 10.1 mg/dL (0.2-1.0); Total Protein 5.5 g/dL (6.4-8.2)
[2021-01-01] MEDS: InsuLIN REG 1unit/0.01ml Soln (100units/ml) SC SCH ×4 (06:00→16:49)
[2021-01-01] MEDS: ACCU-CHEK COMFORT CURVE STRIP VI SCH ×4 (06:29→16:50)
[2021-01-01] MEDS: cefTRIAXone 1GM/50ML D5W 50 ML IV SCH (08:21)
[2021-01-01] MEDS: PANTOPRAZOLE 40 MG/10 ML VIAL INJ IV SCH ×2 (09:26→22:41)
[2021-01-01] MEDS: AZITHROMYCIN 500MG/ 250ML 250 ML IV SCH (09:26)
[2021-01-01] MEDS: LACTULOSE 10g/15ml SOLN PR SCH ×2 (10:00→22:54)
[2021-01-01] MEDS: hydrALAZINE HCL 20 MG/ML VL IV PRN ×2 (14:17→18:37)
[2021-01-01] MEDS: TPN PER PHARMACY IV NR ×8 (14:22)
[2021-01-01] MEDS ORDERED: PROPOFOL 100 ML IV ONE (19:54)
[2021-01-01] MEDS ORDERED: TPN PER PHARMACY IV NR ×8 (20:00)
[2021-01-01] MEDS: PROPOFOL 100 ML IV SCH (20:00)
[2021-01-02] VITALS (103 sets, daily range): BP systolic 102–191; BP diastolic 43–80
[2021-01-02] MEDS: ACCU-CHEK COMFORT CURVE STRIP VI SCH ×4 (00:10→18:00)
[2021-01-02] MEDS: PROPOFOL 100 ML IV SCH (00:10)
[2021-01-02 05:07] LABS: Basophils # (auto) 0 10 ^3/uL (0-0.2); Eosinophils # (auto) 0.2 10 ^3/uL (0-0.8); Eosinophils % (auto) 3.2 % (0.0-7.0); Hemoglobin 7.5 g/dL (13.5-17.5); Monocytes # (auto) 0.8 10 ^3/uL (0-1.3)
[2021-01-02 05:10] LABS: Basophils % (auto) 0.5 % (0.0-2.0); Hematocrit 21.3 % (41.0-53.0); Lymphocytes # (auto) 0.9 10 ^3/uL (0.4-5.4); Mean Corpuscular Hemoglobin 34.3 pg (28.0-32.0); Mean Corpuscular Hgb Conc. 35.4 g/dL (32.0-36.0); Mean Corpuscular Volume 96.8 fL (80.0-100.0); Neutrophils # (auto) 4.7 10 ^3/uL (1.6-8.6); Neutrophils % (auto) 71.3 % (37.0-80.0); White Blood Cell 6.6 10^3/uL (4.4-10.8)
[2021-01-02 05:31] LABS: Albumin 1.3 g/dL (3.4-5.0); Calcium 8.1 mg/dL (8.5-10.1); Magnesium 2.2 mg/dL (1.6-2.6)
[2021-01-02 05:33] LABS: BUN/Creatinine Ratio 47.3
[2021-01-02 05:44] LABS: Red Cell Distribution Width 23.3 % (11.8-14.3)
[2021-01-02 05:47] LABS: Bilirubin, Total 10.5 mg/dL (0.2-1.0); Phosphorus 3.3 mg/dL (2.5-4.90); Total Protein 5.2 g/dL (6.4-8.2)
[2021-01-02 05:53] LABS: Triglycerides 38 mg/dL (< 150)
[2021-01-02 05:57] LABS: Pre Albumin < 3.0 mg/dL (20.0-40.0)
[2021-01-02] MEDS: InsuLIN REG 1unit/0.01ml Soln (100units/ml) SC SCH ×4 (06:00→18:00)
[2021-01-02] MEDS: PANTOPRAZOLE 40 MG/10 ML VIAL INJ IV SCH ×2 (09:20→21:19)
[2021-01-02] MEDS: AZITHROMYCIN 500MG/ 250ML 250 ML IV SCH (09:20)
[2021-01-02] MEDS: cefTRIAXone 1GM/50ML D5W 50 ML IV SCH (09:20)
[2021-01-02] MEDS ORDERED: fentaNYL CITRATE 100 MCG/2 ML VL IV PRN (10:15)
[2021-01-02] MEDS ORDERED: ALBUMIN 25% 50 ML IV ONE (10:15)
[2021-01-02] MEDS ORDERED: MIDAZOLAM HCL 2MG/2ML 2ml VIAL (1mg/ml) IV PRN (10:15)
[2021-01-02] MEDS ORDERED: FUROSEMIDE 40 MG/4 ML VIAL IV ONE (10:15)
[2021-01-02] MEDS: LACTULOSE 10g/15ml SOLN PR SCH (10:47)
[2021-01-02] MEDS: hydrALAZINE HCL 20 MG/ML VL IV PRN (15:13)
[2021-01-02] MEDS ORDERED: LABETALOL HCL 5 MG/ML 4ML SYRINGE IV PRN (16:00)
[2021-01-02] MEDS: fentaNYL Drip 2500mCg/250mlNS 250 ML IV SCH (16:00)
[2021-01-02] MEDS: LACTULOSE 20Gm/30ML SOLN PO SCH (21:19)
[2021-01-02] MEDS: TPN PER PHARMACY IV NR ×10 (21:22)
[2021-01-03] VITALS (105 sets, daily range): BP systolic 93–153; BP diastolic 38–87
[2021-01-03] MEDS: ACCU-CHEK COMFORT CURVE STRIP VI SCH ×4 (00:24→17:39)
[2021-01-03 05:38] LABS: Potassium 3.6 mmol/L (3.5-5.1)
[2021-01-03 05:44] LABS: BUN/Creatinine Ratio 61.8
[2021-01-03 05:45] LABS: Albumin 1.4 g/dL (3.4-5.0); Bilirubin, Total 10.6 mg/dL (0.2-1.0); Calcium 8.2 mg/dL (8.5-10.1); Magnesium 2.2 mg/dL (1.6-2.6); Phosphorus 3.7 mg/dL (2.5-4.90)
[2021-01-03 05:51] LABS: Basophils # (auto) 0.1 10 ^3/uL (0-0.2); Basophils % (auto) 0.8 % (0.0-2.0); Eosinophils # (auto) 0.2 10 ^3/uL (0-0.8); Eosinophils % (auto) 3.6 % (0.0-7.0); Hematocrit 21.2 % (41.0-53.0); Hemoglobin 7.3 g/dL (13.5-17.5); Lymphocytes % (auto) 15.6 % (10.0-50.0); Mean Corpuscular Hemoglobin 33.3 pg (28.0-32.0); Mean Corpuscular Hgb Conc. 34.3 g/dL (32.0-36.0); Monocytes # (auto) 0.9 10 ^3/uL (0-1.3); Monocytes % (auto) 13.7 % (0.0-12.0); Neutrophils # (auto) 4.1 10 ^3/uL (1.6-8.6); Neutrophils % (auto) 66.3 % (37.0-80.0); Nucleated Red Blood Cells % 0.2 %; Red Blood Cells 2.18 10^6/uL (4.5-5.90); White Blood Cell 6.3 10^3/uL (4.4-10.8)
[2021-01-03 05:53] LABS: Red Cell Distribution Width 23.5 % (11.8-14.3)
[2021-01-03] MEDS: InsuLIN REG 1unit/0.01ml Soln (100units/ml) SC SCH ×4 (06:00→17:39)
[2021-01-03] MEDS: fentaNYL Drip 2500mCg/250mlNS 250 ML IV SCH ×2 (08:04→20:15)
[2021-01-03] MEDS: PANTOPRAZOLE 40 MG/10 ML VIAL INJ IV SCH ×2 (09:40→22:00)
[2021-01-03] MEDS: FUROSEMIDE 40 MG/4 ML VIAL IV SCH (09:40)
[2021-01-03] MEDS: LACTULOSE 20Gm/30ML SOLN PO SCH ×2 (09:40→22:00)
[2021-01-03] MEDS: MIDAZOLAM DRIP 50 mg/50mL 50 ML IV SCH ×2 (10:24→16:52)
[2021-01-03] MEDS ORDERED: TPN PER PHARMACY IV NR ×9 (20:00)
[2021-01-04] VITALS (101 sets, daily range): BP systolic 90–144; BP diastolic 37–76
[2021-01-04] MEDS: ACCU-CHEK COMFORT CURVE STRIP VI SCH ×4 (00:58→17:51)
[2021-01-04] MEDS: MIDAZOLAM DRIP 50 mg/50mL 50 ML IV SCH (04:56)
[2021-01-04] MEDS: InsuLIN REG 1unit/0.01ml Soln (100units/ml) SC SCH ×4 (06:00→17:51)
[2021-01-04 06:24] LABS: Albumin 1.4 g/dL (3.4-5.0); Calcium 7.8 mg/dL (8.5-10.1); Magnesium 2.2 mg/dL (1.6-2.6); Potassium 4.1 mmol/L (3.5-5.1)
[2021-01-04 06:26] LABS: Eosinophils # (auto) 0.3 10 ^3/uL (0-0.8); Lymphocytes # (auto) 0.8 10 ^3/uL (0.4-5.4); Monocytes # (auto) 0.8 10 ^3/uL (0-1.3); Neutrophils # (auto) 3.3 10 ^3/uL (1.6-8.6); White Blood Cell 5.3 10^3/uL (4.4-10.8)
[2021-01-04 06:27] LABS: BUN/Creatinine Ratio 44.6; Bilirubin, Total 12.4 mg/dL (0.2-1.0); Total Protein 5.2 g/dL (6.4-8.2)
[2021-01-04 06:30] LABS: Basophils # (auto) 0.1 10 ^3/uL (0-0.2); Basophils % (auto) 1.1 % (0.0-2.0); Eosinophils % (auto) 5.4 % (0.0-7.0); Hematocrit 19.4 % (41.0-53.0); Lymphocytes % (auto) 15.4 % (10.0-50.0); Mean Corpuscular Hemoglobin 34.5 pg (28.0-32.0); Mean Corpuscular Hgb Conc. 35.2 g/dL (32.0-36.0); Mean Corpuscular Volume 97.9 fL (80.0-100.0); Neutrophils % (auto) 62.1 % (37.0-80.0); Red Blood Cells 1.98 10^6/uL (4.5-5.90)
[2021-01-04 06:40] LABS: Red Cell Distribution Width 23.5 % (11.8-14.3)
[2021-01-04 06:41] LABS: Hemoglobin 6.8 g/dL (13.5-17.5)
[2021-01-04] MEDS: TPN PER PHARMACY IV NR ×10 (10:10)
[2021-01-04] MEDS: LACTULOSE 20Gm/30ML SOLN PO SCH ×2 (10:11→22:10)
[2021-01-04] MEDS: FUROSEMIDE 40 MG/4 ML VIAL IV SCH ×2 (10:11→17:54)
[2021-01-04] MEDS: PANTOPRAZOLE 40 MG/10 ML VIAL INJ IV SCH ×2 (10:11→22:09)
[2021-01-04] MEDS: fentaNYL Drip 2500mCg/250mlNS 250 ML IV SCH (11:43)
[2021-01-04] MEDS: ALBUMIN 25% 100 ML IV SCH ×2 (14:49→20:42)
[2021-01-04] MEDS: OCTREOTIDE ACETATE 100 MCG/ML VL SUBCUT SCH ×2 (16:21→22:10)
[2021-01-04] MEDS ORDERED: TPN PER PHARMACY IV NR ×6 (20:00)
[2021-01-05] VITALS (107 sets, daily range): BP systolic 108–143; BP diastolic 41–60
[2021-01-05] MEDS: fentaNYL Drip 2500mCg/250mlNS 250 ML IV SCH ×2 (01:37→15:24)
[2021-01-05] MEDS: ALBUMIN 25% 100 ML IV SCH ×3 (04:40→20:30)
[2021-01-05] MEDS: InsuLIN REG 1unit/0.01ml Soln (100units/ml) SC SCH ×5 (06:00→23:17)
[2021-01-05] MEDS: ACCU-CHEK COMFORT CURVE STRIP VI SCH ×5 (06:13→23:18)
[2021-01-05] MEDS: OCTREOTIDE ACETATE 100 MCG/ML VL SUBCUT SCH ×3 (06:14→22:07)
[2021-01-05] MEDS: FUROSEMIDE 40 MG/4 ML VIAL IV SCH ×2 (06:15→17:35)
[2021-01-05] MEDS: MIDAZOLAM DRIP 50 mg/50mL 50 ML IV SCH (08:05)
[2021-01-05 08:42] LABS: Basophils # (auto) 0 10 ^3/uL (0-0.2); Hemoglobin 7.2 g/dL (13.5-17.5); Lymphocytes # (auto) 0.7 10 ^3/uL (0.4-5.4); Monocytes # (auto) 0.5 10 ^3/uL (0-1.3); Neutrophils # (auto) 2.3 10 ^3/uL (1.6-8.6); White Blood Cell 3.8 10^3/uL (4.4-10.8)
[2021-01-05 08:44] LABS: Basophils % (auto) 0.4 % (0.0-2.0); Eosinophils # (auto) 0.3 10 ^3/uL (0-0.8); Eosinophils % (auto) 7.5 % (0.0-7.0); Hematocrit 20.4 % (41.0-53.0); Lymphocytes % (auto) 19.2 % (10.0-50.0); Mean Corpuscular Hemoglobin 34.1 pg (28.0-32.0); Mean Corpuscular Hgb Conc. 35.3 g/dL (32.0-36.0); Mean Corpuscular Volume 96.7 fL (80.0-100.0); Monocytes % (auto) 13.1 % (0.0-12.0); Neutrophils % (auto) 59.8 % (37.0-80.0); Nucleated Red Blood Cells % 0.2 %; Red Cell Distribution Width 22.1 % (11.8-14.3)
[2021-01-05 09:00] LABS: Albumin 2.1 g/dL (3.4-5.0); Calcium 8.4 mg/dL (8.5-10.1); Magnesium 2.2 mg/dL (1.6-2.6); Potassium 3.8 mmol/L (3.5-5.1)
[2021-01-05 09:08] LABS: BUN/Creatinine Ratio 55.2; Phosphorus 4.6 mg/dL (2.5-4.90); Total Protein 5.4 g/dL (6.4-8.2)
[2021-01-05] MEDS: PANTOPRAZOLE 40 MG/10 ML VIAL INJ IV SCH ×2 (09:31→20:07)
[2021-01-05] MEDS: LACTULOSE 20Gm/30ML SOLN PO SCH ×2 (09:31→20:07)
[2021-01-05 12:50] LABS: INR 3.13 (0.9-1.15)
[2021-01-05 12:57] LABS: Partial Thromboplastin Time 71.2 sec (23.6-33.0)
[2021-01-05 14:41] LABS: Protein, Urine 23.9 mg/dL (0.0-11.9)
[2021-01-05] MEDS ORDERED: TPN PER PHARMACY IV NR ×9 (20:00)
[2021-01-06] VITALS (96 sets, daily range): BP systolic 85–156; BP diastolic 36–73
[2021-01-06] MEDS: PROPOFOL 100 ML IV SCH (02:39)
[2021-01-06] MEDS: FUROSEMIDE 40 MG/4 ML VIAL IV SCH ×2 (05:43→18:00)
[2021-01-06] MEDS: ALBUMIN 25% 100 ML IV SCH (05:44)
[2021-01-06] MEDS: OCTREOTIDE ACETATE 100 MCG/ML VL SUBCUT SCH ×3 (05:45→20:09)
[2021-01-06] MEDS: ACCU-CHEK COMFORT CURVE STRIP VI SCH ×4 (05:45→23:14)
[2021-01-06 05:50] LABS: Basophils # (auto) 0 10 ^3/uL (0-0.2); Basophils % (auto) 0.7 % (0.0-2.0); Eosinophils # (auto) 0.3 10 ^3/uL (0-0.8); Hemoglobin 7.2 g/dL (13.5-17.5); Lymphocytes # (auto) 0.7 10 ^3/uL (0.4-5.4); Mean Corpuscular Volume 97.8 fL (80.0-100.0); Red Blood Cells 2.06 10^6/uL (4.5-5.90)
[2021-01-06 05:54] LABS: Eosinophils % (auto) 7.6 % (0.0-7.0); Hematocrit 20.1 % (41.0-53.0); Lymphocytes % (auto) 17.8 % (10.0-50.0); Mean Corpuscular Hemoglobin 35.1 pg (28.0-32.0); Mean Corpuscular Hgb Conc. 35.9 g/dL (32.0-36.0); Monocytes # (auto) 0.5 10 ^3/uL (0-1.3); Monocytes % (auto) 13.3 % (0.0-12.0); Neutrophils # (auto) 2.5 10 ^3/uL (1.6-8.6); Neutrophils % (auto) 60.6 % (37.0-80.0); Nucleated Red Blood Cells % 0.2 %; Red Cell Distribution Width 22.4 % (11.8-14.3); White Blood Cell 4.1 10^3/uL (4.4-10.8)
[2021-01-06] MEDS: InsuLIN REG 1unit/0.01ml Soln (100units/ml) SC SCH ×4 (06:00→23:14)
[2021-01-06 06:06] LABS: INR 2.5 (0.9-1.15)
[2021-01-06 06:16] LABS: BUN/Creatinine Ratio 61.6; Bilirubin, Total 14.8 mg/dL (0.2-1.0); Calcium 8.2 mg/dL (8.5-10.1); Phosphorus 4.2 mg/dL (2.5-4.90); Total Protein 5.3 g/dL (6.4-8.2)
[2021-01-06] MEDS: LACTULOSE 20Gm/30ML SOLN PO SCH ×2 (09:53→20:09)
[2021-01-06] MEDS: PANTOPRAZOLE 40 MG/10 ML VIAL INJ IV SCH ×2 (09:53→20:09)
[2021-01-06] MEDS: MIDAZOLAM DRIP 50 mg/50mL 50 ML IV SCH (10:15)
[2021-01-06] MEDS: fentaNYL Drip 2500mCg/250mlNS 250 ML IV SCH (17:55)
[2021-01-06] MEDS: TPN PER PHARMACY IV NR ×6 (19:34)
[2021-01-06] MEDS ORDERED: ALBUMIN 5% 250 ML IV ONE (22:00)
[2021-01-07] VITALS (101 sets, daily range): BP systolic 82–158; BP diastolic 30–67
[2021-01-07 04:36] LABS: Eosinophils # (auto) 0.4 10 ^3/uL (0-0.8); Eosinophils % (auto) 7.7 % (0.0-7.0); Nucleated Red Blood Cells % 0.1 %
[2021-01-07 04:41] LABS: Basophils # (auto) 0 10 ^3/uL (0-0.2); Basophils % (auto) 0.5 % (0.0-2.0); Hematocrit 19.6 % (41.0-53.0); Lymphocytes # (auto) 0.8 10 ^3/uL (0.4-5.4); Lymphocytes % (auto) 15.6 % (10.0-50.0); Mean Corpuscular Hemoglobin 34.3 pg (28.0-32.0); Mean Corpuscular Hgb Conc. 34.5 g/dL (32.0-36.0); Mean Corpuscular Volume 99.5 fL (80.0-100.0); Monocytes # (auto) 0.6 10 ^3/uL (0-1.3); Monocytes % (auto) 11.7 % (0.0-12.0); Neutrophils # (auto) 3.5 10 ^3/uL (1.6-8.6); Neutrophils % (auto) 64.5 % (37.0-80.0); Red Blood Cells 1.97 10^6/uL (4.5-5.90); White Blood Cell 5.4 10^3/uL (4.4-10.8)
[2021-01-07] MEDS: PROPOFOL 100 ML IV SCH ×3 (04:56→17:18)
[2021-01-07 04:57] LABS: Potassium 4.3 mmol/L (3.5-5.1)
[2021-01-07 05:00] LABS: Red Cell Distribution Width 22.4 % (11.8-14.3)
[2021-01-07 05:02] LABS: Hemoglobin 6.8 g/dL (13.5-17.5)
[2021-01-07] MEDS: NOREPINEPHRINE 8 MG/250ML KIT 250 ML IV SCH (05:04)
[2021-01-07 05:06] LABS: Albumin 2.2 g/dL (3.4-5.0); BUN/Creatinine Ratio 38.3; Bilirubin, Total 14.1 mg/dL (0.2-1.0); Calcium 8.2 mg/dL (8.5-10.1); Magnesium 2.2 mg/dL (1.6-2.6); Total Protein 5.5 g/dL (6.4-8.2)
[2021-01-07] MEDS: InsuLIN REG 1unit/0.01ml Soln (100units/ml) SC SCH ×4 (05:28→23:16)
[2021-01-07] MEDS: ACCU-CHEK COMFORT CURVE STRIP VI SCH ×4 (05:28→23:16)
[2021-01-07] MEDS: OCTREOTIDE ACETATE 100 MCG/ML VL SUBCUT SCH ×3 (05:35→22:48)
[2021-01-07] MEDS: FUROSEMIDE 40 MG/4 ML VIAL IV SCH (05:35)
[2021-01-07] MEDS: fentaNYL Drip 2500mCg/250mlNS 250 ML IV SCH (08:07)
[2021-01-07] MEDS: DOPamine 1600MCG/ML D5W 250 ML IV SCH (09:10)
[2021-01-07] MEDS: PANTOPRAZOLE 40 MG/10 ML VIAL INJ IV SCH ×2 (09:35→22:46)
[2021-01-07] MEDS: LACTULOSE 20Gm/30ML SOLN PO SCH ×2 (09:35→22:47)
[2021-01-07] MEDS: MIDAZOLAM DRIP 50 mg/50mL 50 ML IV SCH (10:15)
[2021-01-07] MEDS: ALBUMIN 25% 100 ML IV SCH ×2 (12:12→17:56)
[2021-01-07 13:17] LABS: INR 1.51 (0.9-1.15); Partial Thromboplastin Time 37.1 sec (23.6-33.0)
[2021-01-07] MEDS: TPN PER PHARMACY IV NR ×11 (20:01→20:04)
[2021-01-08] VITALS (96 sets, daily range): BP systolic 98–216; BP diastolic 37–82
[2021-01-08] MEDS: ALBUMIN 25% 100 ML IV SCH (02:15)
[2021-01-08] MEDS: NOREPINEPHRINE 8 MG/250ML KIT 250 ML IV SCH (04:15)
[2021-01-08 05:56] LABS: INR 3.44 (0.9-1.15)
[2021-01-08 05:57] LABS: BUN/Creatinine Ratio 41.8; Bilirubin, Total 16.4 mg/dL (0.2-1.0); Calcium 8.5 mg/dL (8.5-10.1); Magnesium 2.4 mg/dL (1.6-2.6); Phosphorus 5.2 mg/dL (2.5-4.90); Total Protein 6.1 g/dL (6.4-8.2)
[2021-01-08 06:00] LABS: Eosinophils # (auto) 0.3 10 ^3/uL (0-0.8); Hemoglobin 7.6 g/dL (13.5-17.5); Lymphocytes # (auto) 0.6 10 ^3/uL (0.4-5.4); Monocytes # (auto) 0.4 10 ^3/uL (0-1.3); Monocytes % (auto) 11.4 % (0.0-12.0); Neutrophils # (auto) 2.4 10 ^3/uL (1.6-8.6)
[2021-01-08] MEDS: InsuLIN REG 1unit/0.01ml Soln (100units/ml) SC SCH ×3 (06:00→17:33)
[2021-01-08] MEDS: ACCU-CHEK COMFORT CURVE STRIP VI SCH ×3 (06:00→17:32)
[2021-01-08] MEDS: OCTREOTIDE ACETATE 100 MCG/ML VL SUBCUT SCH ×3 (06:00→22:05)
[2021-01-08 06:02] LABS: Basophils # (auto) 0.1 10 ^3/uL (0-0.2); Eosinophils % (auto) 8.5 % (0.0-7.0); Hematocrit 21.3 % (41.0-53.0); Lymphocytes % (auto) 16.7 % (10.0-50.0); Mean Corpuscular Hemoglobin 34.9 pg (28.0-32.0); Mean Corpuscular Hgb Conc. 35.6 g/dL (32.0-36.0); Mean Corpuscular Volume 98.2 fL (80.0-100.0); Neutrophils % (auto) 61.4 % (37.0-80.0); Nucleated Red Blood Cells % 0.1 %; Red Blood Cells 2.17 10^6/uL (4.5-5.90); White Blood Cell 3.9 10^3/uL (4.4-10.8)
[2021-01-08 06:03] LABS: Partial Thromboplastin Time 72.8 sec (23.6-33.0)
[2021-01-08 06:07] LABS: Red Cell Distribution Width 21.5 % (11.8-14.3)
[2021-01-08] MEDS: DOPamine 1600MCG/ML D5W 250 ML IV SCH ×2 (08:45→16:57)
[2021-01-08] MEDS: LACTULOSE 20Gm/30ML SOLN PO SCH ×2 (09:23→22:04)
[2021-01-08] MEDS: PANTOPRAZOLE 40 MG/10 ML VIAL INJ IV SCH ×2 (09:23→22:04)
[2021-01-08] MEDS: PROPOFOL 100 ML IV SCH (09:24)
[2021-01-08] MEDS: MIDAZOLAM DRIP 50 mg/50mL 50 ML IV SCH (09:24)
[2021-01-08] MEDS: fentaNYL Drip 2500mCg/250mlNS 250 ML IV SCH (16:56)
[2021-01-08] MEDS: TPN PER PHARMACY IV NR ×11 (19:51→19:57)
[2021-01-09] VITALS (72 sets, daily range): BP systolic 120–152; BP diastolic 24–50
[2021-01-09 05:20] LABS: Lymphocytes # (auto) 0.6 10 ^3/uL (0.4-5.4); Mean Corpuscular Hgb Conc. 35.1 g/dL (32.0-36.0); Monocytes # (auto) 0.4 10 ^3/uL (0-1.3)
[2021-01-09 05:38] LABS: Albumin 2.4 g/dL (3.4-5.0); Calcium 8.5 mg/dL (8.5-10.1); Magnesium 2.3 mg/dL (1.6-2.6); Potassium 3.8 mmol/L (3.5-5.1)
[2021-01-09 05:41] LABS: BUN/Creatinine Ratio 53.8; Bilirubin, Total 15.4 mg/dL (0.2-1.0); Phosphorus 3.9 mg/dL (2.5-4.90); Total Protein 5.4 g/dL (6.4-8.2)
[2021-01-09 05:50] LABS: Basophils # (auto) 0.1 10 ^3/uL (0-0.2); Basophils % (auto) 1.9 % (0.0-2.0); Eosinophils # (auto) 0.2 10 ^3/uL (0-0.8); Eosinophils % (auto) 7.4 % (0.0-7.0); Hematocrit 23.3 % (41.0-53.0); Hemoglobin 8.2 g/dL (13.5-17.5); Lymphocytes % (auto) 16.4 % (10.0-50.0); Mean Corpuscular Hemoglobin 34.1 pg (28.0-32.0); Mean Corpuscular Volume 96.9 fL (80.0-100.0); Monocytes % (auto) 13.3 % (0.0-12.0); Red Blood Cells 2.41 10^6/uL (4.5-5.90); White Blood Cell 3.3 10^3/uL (4.4-10.8)
[2021-01-09] MEDS: InsuLIN REG 1unit/0.01ml Soln (100units/ml) SC SCH ×4 (06:00→18:00)
[2021-01-09 06:19] LABS: INR 3.61 (0.9-1.15)
[2021-01-09] MEDS: OCTREOTIDE ACETATE 100 MCG/ML VL SUBCUT SCH ×3 (06:26→21:56)
[2021-01-09] MEDS: ACCU-CHEK COMFORT CURVE STRIP VI SCH ×4 (06:26→18:00)
[2021-01-09] MEDS: NOREPINEPHRINE 8 MG/250ML KIT 250 ML IV SCH (09:33)
[2021-01-09] MEDS: MIDAZOLAM DRIP 50 mg/50mL 50 ML IV SCH (10:15)
[2021-01-09] MEDS: fentaNYL Drip 2500mCg/250mlNS 250 ML IV SCH (16:00)
[2021-01-09] MEDS: DOPamine 1600MCG/ML D5W 250 ML IV SCH (16:06)
[2021-01-09] MEDS: PANTOPRAZOLE 40 MG/10 ML VIAL INJ IV SCH ×2 (16:43→21:55)
[2021-01-09] MEDS: LACTULOSE 20Gm/30ML SOLN PO SCH ×2 (16:44→21:56)
[2021-01-09] MEDS: TPN PER PHARMACY IV NR ×14 (20:15)
[2021-01-10] VITALS (45 sets, daily range): BP systolic 135–181; BP diastolic 24–77
[2021-01-10] MEDS: PROPOFOL 100 ML IV SCH (01:00)
[2021-01-10] MEDS: NOREPINEPHRINE 8 MG/250ML KIT 250 ML IV SCH (04:15)
[2021-01-10 04:56] LABS: Basophils # (auto) 0 10 ^3/uL (0-0.2); Eosinophils # (auto) 0.2 10 ^3/uL (0-0.8); Hemoglobin 8.7 g/dL (13.5-17.5); Monocytes # (auto) 0.4 10 ^3/uL (0-1.3)
[2021-01-10 05:04] LABS: Basophils % (auto) 0.4 % (0.0-2.0); Eosinophils % (auto) 3.8 % (0.0-7.0); Hematocrit 24.8 % (41.0-53.0); Lymphocytes # (auto) 0.4 10 ^3/uL (0.4-5.4); Mean Corpuscular Hgb Conc. 34.9 g/dL (32.0-36.0); Mean Corpuscular Volume 97.4 fL (80.0-100.0); Monocytes % (auto) 9.9 % (0.0-12.0); Neutrophils # (auto) 2.9 10 ^3/uL (1.6-8.6); Neutrophils % (auto) 74.9 % (37.0-80.0); Nucleated Red Blood Cells % 0.1 %; Red Blood Cells 2.54 10^6/uL (4.5-5.90); White Blood Cell 3.9 10^3/uL (4.4-10.8)
[2021-01-10 05:20] LABS: Albumin 2.2 g/dL (3.4-5.0); BUN/Creatinine Ratio 65.7; Calcium 8.8 mg/dL (8.5-10.1); Magnesium 2.5 mg/dL (1.6-2.6); Potassium 3.8 mmol/L (3.5-5.1); Red Cell Distribution Width 22.1 % (11.8-14.3)
[2021-01-10 05:31] LABS: Bilirubin, Total 17.6 mg/dL (0.2-1.0); Total Protein 5.5 g/dL (6.4-8.2)
[2021-01-10] MEDS: InsuLIN REG 1unit/0.01ml Soln (100units/ml) SC SCH ×5 (06:00→23:46)
[2021-01-10] MEDS: ACCU-CHEK COMFORT CURVE STRIP VI SCH ×5 (06:10→23:46)
[2021-01-10] MEDS: OCTREOTIDE ACETATE 100 MCG/ML VL SUBCUT SCH ×3 (06:50→21:20)
[2021-01-10] MEDS: LACTULOSE 20Gm/30ML SOLN PO SCH ×2 (10:07→21:19)
[2021-01-10] MEDS: PANTOPRAZOLE 40 MG/10 ML VIAL INJ IV SCH ×2 (10:07→21:19)
[2021-01-10] MEDS: MIDAZOLAM DRIP 50 mg/50mL 50 ML IV SCH (10:15)
[2021-01-10] MEDS ORDERED: phytonadione 10 MG in SODIUM CHL 0.9% 50 ML IV ONE (10:45)
[2021-01-10] MEDS: FREE WATER GT SCH ×4 (12:45→21:18)
[2021-01-10] MEDS: PROPRANOLOL HCL 20 MG TAB PO SCH ×2 (12:49→21:20)
[2021-01-10] MEDS: TPN PER PHARMACY IV NR ×8 (19:52)
[2021-01-10] MEDS ORDERED: TPN PER PHARMACY IV NR ×5 (20:00)
[2021-01-10] MEDS: hydrALAZINE HCL 20 MG/ML VL IV PRN (20:27)
[2021-01-10] MEDS: DOPamine 1600MCG/ML D5W 250 ML IV SCH (22:00)
[2021-01-11] VITALS (32 sets, daily range): BP systolic 102–161; BP diastolic 27–54
[2021-01-11] MEDS: PROPOFOL 100 ML IV SCH (01:00)
[2021-01-11] MEDS: FREE WATER GT SCH ×3 (02:00→10:23)
[2021-01-11] MEDS: hydrALAZINE HCL 20 MG/ML VL IV PRN (03:00)
[2021-01-11] MEDS: NOREPINEPHRINE 8 MG/250ML KIT 250 ML IV SCH (04:15)
[2021-01-11 04:36] LABS: Hematocrit 23.3 % (41.0-53.0); Hemoglobin 8.3 g/dL (13.5-17.5); Red Blood Cells 2.38 10^6/uL (4.5-5.90)
[2021-01-11 04:38] LABS: Mean Corpuscular Hemoglobin 34.8 pg (28.0-32.0); Mean Corpuscular Hgb Conc. 35.4 g/dL (32.0-36.0); Mean Corpuscular Volume 98.2 fL (80.0-100.0); White Blood Cell 4.4 10^3/uL (4.4-10.8)
[2021-01-11 04:54] LABS: Albumin 1.8 g/dL (3.4-5.0); Magnesium 2.4 mg/dL (1.6-2.6); Potassium 3.7 mmol/L (3.5-5.1)
[2021-01-11 04:57] LABS: BUN/Creatinine Ratio 67.9; Calcium 8.6 mg/dL (8.5-10.1)
[2021-01-11 05:10] LABS: Bilirubin, Total 19.7 mg/dL (0.2-1.0); Phosphorus 2.6 mg/dL (2.5-4.90); Total Protein 5.1 g/dL (6.4-8.2)
[2021-01-11 05:17] LABS: Red Cell Distribution Width 22.8 % (11.8-14.3)
[2021-01-11] MEDS: InsuLIN REG 1unit/0.01ml Soln (100units/ml) SC SCH ×3 (06:00→18:00)
[2021-01-11] MEDS: OCTREOTIDE ACETATE 100 MCG/ML VL SUBCUT SCH ×2 (06:19→18:17)
[2021-01-11] MEDS: ACCU-CHEK COMFORT CURVE STRIP VI SCH ×3 (06:20→18:49)
[2021-01-11 06:50] LABS: INR 3.5 (0.9-1.15)
[2021-01-11 06:51] LABS: Partial Thromboplastin Time 68.7 sec (23.6-33.0)
[2021-01-11 07:18] LABS: Basophils % (manual) 0 (0.0-2.0); Blast Cells 0; Eosinophils % (manual) 0 (0-7); Metamyelocytes % 0; Myelocytes % 0; Promyelocytes % 0; Reactive Lymphocytes 0
[2021-01-11 07:45] LABS: Band Neutrophils % (manual) 14; Lymphocytes % (manual) 16 (10.0-50.0); Monocytes % (manual) 9 (0-12)
[2021-01-11] MEDS: PROPRANOLOL HCL 20 MG TAB PO SCH ×2 (10:00→10:22)
[2021-01-11] MEDS: LACTULOSE 20Gm/30ML SOLN PO SCH ×3 (10:00→21:21)
[2021-01-11] MEDS: MIDAZOLAM DRIP 50 mg/50mL 50 ML IV SCH (10:15)
[2021-01-11] MEDS: PANTOPRAZOLE 40 MG/10 ML VIAL INJ IV SCH ×2 (10:21→22:17)
[2021-01-11] MEDS ORDERED: phytonadione 10 MG in SODIUM CHL 0.9% 50 ML IV ONE (11:00)
[2021-01-11] MEDS: D5W 5% 1,000 ML IV SCH ×2 (11:17→18:46)
[2021-01-11] MEDS ORDERED: FUROSEMIDE 20 MG/2 ML VIAL IV ONE (14:30)
[2021-01-11 19:42] LABS: Hematocrit 17.6 % (41.0-53.0)
[2021-01-11 19:44] LABS: Hemoglobin 6.2 g/dL (13.5-17.5)
[2021-01-11] MEDS ORDERED: TPN PER PHARMACY IV NR ×5 (20:00)
[2021-01-12] VITALS (51 sets, daily range): BP systolic 96–180; BP diastolic 29–73
[2021-01-12] MEDS: OCTREOTIDE ACETATE 100 MCG/ML VL SUBCUT SCH ×2 (00:14→06:00)
[2021-01-12] MEDS: ACCU-CHEK COMFORT CURVE STRIP VI SCH ×3 (00:21→15:03)
[2021-01-12] MEDS: PROPOFOL 100 ML IV SCH (01:00)
[2021-01-12 01:08] LABS: Hemoglobin 7.1 g/dL (13.5-17.5)
[2021-01-12 03:45] LABS: Basophils # (auto) 0.1 10 ^3/uL (0-0.2); Basophils % (auto) 0.8 % (0.0-2.0); Eosinophils # (auto) 0.3 10 ^3/uL (0-0.8); Mean Corpuscular Volume 98.8 fL (80.0-100.0); Monocytes # (auto) 0.7 10 ^3/uL (0-1.3)
[2021-01-12 03:46] LABS: Eosinophils % (auto) 4.5 % (0.0-7.0); Lymphocytes # (auto) 1.2 10 ^3/uL (0.4-5.4); Lymphocytes % (auto) 17.7 % (10.0-50.0); Mean Corpuscular Hemoglobin 34.1 pg (28.0-32.0); Mean Corpuscular Hgb Conc. 34.5 g/dL (32.0-36.0); Monocytes % (auto) 10.8 % (0.0-12.0); Neutrophils # (auto) 4.6 10 ^3/uL (1.6-8.6); Neutrophils % (auto) 66.2 % (37.0-80.0); Red Blood Cells 2.03 10^6/uL (4.5-5.90); White Blood Cell 6.9 10^3/uL (4.4-10.8)
[2021-01-12 03:49] LABS: Hemoglobin 6.9 g/dL (13.5-17.5)
[2021-01-12 04:06] LABS: Albumin 1.8 g/dL (3.4-5.0); Calcium 8.5 mg/dL (8.5-10.1); Magnesium 2.5 mg/dL (1.6-2.6); Potassium 3.8 mmol/L (3.5-5.1)
[2021-01-12] MEDS: NOREPINEPHRINE 8 MG/250ML KIT 250 ML IV SCH (04:15)
[2021-01-12 04:18] LABS: Phosphorus 2.8 mg/dL (2.5-4.90); Total Protein 4.9 g/dL (6.4-8.2)
[2021-01-12 04:20] LABS: INR 2.86 (0.9-1.15); Partial Thromboplastin Time 63.7 sec (23.6-33.0)
[2021-01-12] MEDS: InsuLIN REG 1unit/0.01ml Soln (100units/ml) SC SCH ×3 (06:00→12:00)
[2021-01-12] MEDS: D5W 5% 1,000 ML IV SCH ×2 (07:00→09:43)
[2021-01-12] MEDS: PANTOPRAZOLE 40 MG/10 ML VIAL INJ IV SCH (09:43)
[2021-01-12] MEDS: LACTULOSE 20Gm/30ML SOLN PO SCH (09:44)
[2021-01-12] MEDS: MIDAZOLAM DRIP 50 mg/50mL 50 ML IV SCH (09:44)
[2021-01-12] MEDS ORDERED: MORPHINE SULFATE INJECTION 2 MG/ML SYRG IV PRN (16:00)
[2021-01-12] MEDS ORDERED: MORPHINE SULFATE INJECTION 2 MG/ML SYRG ONE (16:06)
[2021-01-12] MEDS ORDERED: TPN PER PHARMACY IV NR ×6 (20:00)
== END 2021-01-12 18:45 | DRG 130 ==
LOC: ER 19:14 → TELE 12-19 00:21 → DOU IN ICU 12-19 07:57
PROVIDERS: ADMIT Nurse Practitioner Family; ATTEND Internal Medicine Pulmonary Disease
PROC: 5A1955Z Respiratory Ventilation, Greater than 96 Consecutive Hours (ICD-10-PCS; principal; 2020-12-19)
PROC: 0BH17EZ Insertion of Endotracheal Airway into Trachea, Via Natural or Artificial Opening (ICD-10-PCS; 2020-12-19)
PROC: 06HM33Z Insertion of Infusion Device into Right Femoral Vein, Percutaneous Approach (ICD-10-PCS; 2020-12-19)
PROC: B54BZZA Ultrasonography of Right Lower Extremity Veins, Guidance (ICD-10-PCS; 2020-12-19)
PROC: 30233K1 Transfusion of Nonautologous Frozen Plasma into Peripheral Vein, Percutaneous Approach (ICD-10-PCS; 2020-12-19)
PROC: 30233N1 Transfusion of Nonautologous Red Blood Cells into Peripheral Vein, Percutaneous Approach (ICD-10-PCS; 2020-12-19)
PROC: 0D9670Z Drainage of Stomach with Drainage Device, Via Natural or Artificial Opening (ICD-10-PCS; 2020-12-19)
PROC: 30233R1 Transfusion of Nonautologous Platelets into Peripheral Vein, Percutaneous Approach (ICD-10-PCS; 2020-12-21)
PROC: 06L38CZ Occlusion of Esophageal Vein with Extraluminal Device, Via Natural or Artificial Opening Endoscopic (ICD-10-PCS; 2020-12-23)
DX: J96.01 Acute respiratory failure with hypoxia (principal); N17.0 Acute kidney failure with tubular necrosis; K76.7 Hepatorenal syndrome; K72.00 Acute and subacute hepatic failure without coma; R57.8 Other shock; R57.1 Hypovolemic shock; G93.41 Metabolic encephalopathy; I85.11 Secondary esophageal varices with bleeding; D61.818 Other pancytopenia; E43 Unspecified severe protein-calorie malnutrition; K70.31 Alcoholic cirrhosis of liver with ascites; D62 Acute posthemorrhagic anemia; Z66 Do not resuscitate; E87.0 Hyperosmolality and hypernatremia; D68.9 Coagulation defect, unspecified; Z20.822 Contact with and (suspected) exposure to COVID-19; E87.1 Hypo-osmolality and hyponatremia; E87.5 Hyperkalemia; F10.10 Alcohol abuse, uncomplicated; K31.89 Other diseases of stomach and duodenum; K76.6 Portal hypertension; N39.0 Urinary tract infection, site not specified; Z99.11 Dependence on respirator [ventilator] status; Z51.5 Encounter for palliative care; Z68.33 Body mass index [BMI] 33.0-33.9, adult
CPT/HCPCS: 31500; 36415; 36430; 36600; 43244; 70450; 71045; 74176; 76705; 80053; 81001; 82040; 82140; 82570; 82805; 82962; 83605; 83735; 83880; 84100; 84132; 84156; 84300; 84443; 84478; 84484; 85007; 85014; 85018; 85025; 85027; 85610; 85730; 86850; 86900; 86901; 86920; 87070; 87077; 87081; 87186; 87205; 87426; 93005; 94002; 94003; 94644; 95819; 96361; 96365; 96375; 99291; C9113; G0378; J0696; J1815; J2250; J2704; J3430; J3490; J7060; J7131; P9047